=== PATIENT | male | born 1980 | race Caucasian/White ===

== ENCOUNTER 2019-11-12 18:54 | Emergency (ER) | payer OTHER ==
[2019-11-12] MEDS ORDERED: POVIDONE IODINE 10 % 15 ML UD TOP ONE (20:00)
[2019-11-12 20:26] VITALS: O2SAT 99
[2019-11-12] MEDS ORDERED: TETANUS,DIPHTHERIA,PERTUSSIS 1 EA SYG IM ONE (20:34)
[2019-11-12] MEDS ORDERED: LIDOCAINE 1% 10 ML VIAL INJ ONE (20:34)
--- NOTE | 2019-11-12 20:35 | ED.PDOC ---
History of Present Illness - General Chief Complaint: Laceration Stated Complaint: laceration to right ring finger Time Seen by Provider: 11/12/19 20:33 Source: patient Additional Information: 39yo M who sustained a lac to the mid ventral R ring finger while working with plastic pipe today. He reports full ROM. No change in sensation. He is due for tetanus booster. No other reported issues. - History of Present Illness Timing/Duration: this afternoon Home Medications: Ambulatory Orders Cephalexin Monohydrate [Keflex] 500 mg PO Q6HR #28 cap 11/12/19 Review of Systems - Review of Systems Constitutional: Denies: chills, fever Respiratory: States: no symptoms reported Cardiology: States: no symptoms reported Musculoskeletal: Denies: joint pain, joint swelling Skin: States: other - Laceration to finger. Denies: change in color Neurological: Denies: numbness, weakness Past Medical History (General) - Patient Medical History Hx Seizures: No Hx Asthma: No Hx Diabetes: No - Vaccination History Hx Tetanus, Diphtheria Vaccination: Yes - 2013 Hx Influenza Vaccination: No Hx Pneumococcal Vaccination: No Immunizations Up to Date: No - Social History Hx Alcohol Use: Yes - occ Hx Substance Use: No Family Medical History - Family History Father Hx Family Hypertension: Yes Physical Exam - Physical Exam General Appearance: Alert, Comfortable Neck: non-tender, full range of motion, supple Cardiovascular/Chest: normal peripheral pulses, regular rate, rhythm Respiratory: chest non-tender, lungs clear, normal breath sounds Extremity: normal range of motion, other - Pt has full flexion of FDP, FDS. Dog ear laceration to pad between PIP and DIP 2 cm to sub-q tissue. Nl cap refill. Neurologic: no motor/sensory deficits, alert Progress - Progress Progress: 11/12/19 22:21 Would repaired without complication. Will cover with abx. Suture removal in 8- 10 days. Discussed results and return warnings. It was a pleasure to care for this patient today. 11/12/19 22:21 Erick Pitts MD. #[id number] Procedures - Laceration/Wound Repair Right Finger Wound Length (cm): 2 Wound's Depth, Shape: irregular Wound Explored: clean Irrigated w/ Saline (cc's): 500 Betadine Prep?: Yes Anesthesia: 1% Lidocaine Volume Anesthetic (cc's): 1 Wound Debrided: minimal Wound Repaired With: sutures Suture Size/Type: 4:0, prolene Number of Sutures: 7 Layer Closure?: No Sterile Dressing Applied?: Yes Progress: Wound cleaned and repaired without complication. Departure - Departure Clinical Impression: Laceration Disposition: Discharge to Home or Self Care Condition: Good Departure Forms: ED Discharge - Pt. Copy, Patient Portal Self Enrollment Instructions: DI for Laceration Repair Prescriptions: Cephalexin Monohydrate [Keflex] 500 mg PO Q6HR #28 cap Home Medications: Ambulatory Orders Cephalexin Monohydrate [Keflex] 500 mg PO Q6HR #28 cap 11/12/19 Additional Instructions: Suture removal in 8-10 days.
[2019-11-12] MEDS ORDERED: NEOMYCIN-BACITRACIN-POLYMYXIN 0.9 GM UD TOP ONE ×2 (21:39→21:41)
[2019-11-13 00:15] VITALS: BP 146/93; TEMP 97.2
== END 2019-11-12 21:55 | disposition home or self-care (01) ==
LOC: ER 18:54
DX: S61.214A Laceration without foreign body of right ring finger without damage to nail, initial encounter (principal); W45.8XXA Other foreign body or object entering through skin, initial encounter; Y92.9 Unspecified place or not applicable